=== PATIENT | female | born 1970 ===

== ENCOUNTER 2017-09-11 07:26 | Emergency (ER) | payer OTHER ==
[2017-09-11 07:39] VITALS: BMI 22.6
[2017-09-11] MEDS ORDERED: Sodium Chloride 0.9% 1,000 ML IV STA (07:48)
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
[2017-09-11 08:32] LABS: BASO % 0.8 % (0.0-2.0); EOS % 0.7 % (0.0-4.0); HEMOGLOBIN 13.3 g/dL (12.0-16.0); LYMPH # 1.2 K/uL (1.0-4.3); LYMPH % 27.2 % (20.0-40.0); MEAN CORPUSCULAR HEMOGLOBIN 32.2 pg (27.0-31.0); MEAN CORPUSCULAR HGB CONC 34.7 g/dL (33.0-37.0); MEAN PLATELET VOLUME 7.4 fl (7.2-11.7); MONO # 0.4 K/uL (0.0-0.8); MONO % 8.7 % (0.0-10.0); NEUT # 2.7 K/uL (1.8-7.0); NEUT % 62.6 % (50.0-75.0); NRBC % 0.1 % (0.0-0.0); RBC 4.14 Mil/uL (3.80-5.20); RED CELL DISTRIBUTION WIDTH 12.9 % (11.5-14.5); WHITE BLOOD COUNT 4.3 K/uL (4.8-10.8)
[2017-09-11 08:42] LABS: ALB/GLOB RATIO 1.1 (1.0-2.1); ALBUMIN 4.3 g/dL (3.5-5.0); ALT/SGPT 38 U/L (9-52); AST/SGOT 55 U/L (14-36); BLOOD UREA NITROGEN 11 mg/dl (7-17); CALCIUM 9.6 mg/dL (8.4-10.2); GFR AFRICAN-AMERICAN > 60; GFR NON-AFRICAN AMERICAN > 60
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
[2017-09-11 11:19] VITALS: BP 122/76; PULSE 78; RESP 18; TEMP 98.1; O2SAT 100
== END 2017-09-11 10:45 | disposition home or self-care (01) ==
LOC: H.ER 07:26
DX: K29.70 Gastritis, unspecified, without bleeding (principal); S43.402A Unspecified sprain of left shoulder joint, initial encounter; S99.921A Unspecified injury of right foot, initial encounter; W19.XXXA Unspecified fall, initial encounter; Y92.89 Other specified places as the place of occurrence of the external cause; E03.9 Hypothyroidism, unspecified
CPT/HCPCS: 73030; 73610; 73630; 80053; 81025; 85025; 99285; J7040